=== PATIENT | male | born 1950 | race Caucasian/White ===

== ENCOUNTER 2018-12-13 21:21 | Outpatient (REF) | payer MEDICARE, MEDICAID, SELFPAY ==
[2018-12-13 21:51] LABS: BUN 20 mg/dL (7-18); CREATININE 0.94 mg/dL (0.70-1.30); Calcium 9.4 mg/dL (8.5-10.1); Chloride 103 mmol/L (98-107); Glucose 92 mg/dL (70-100); Sodium 140 mmol/L (136-145)
== END 2018-12-13 21:41 ==
LOC: NCHCN 21:21
PROVIDERS: PCP Internal Medicine; Visit Provider Internal Medicine
DX: I10 Essential (primary) hypertension (principal)
CPT/HCPCS: 80048

== ENCOUNTER 2019-03-06 10:53 | Outpatient (REF) | payer MEDICARE, MEDICAID, SELFPAY ==
[2019-03-06 21:32] LABS: HCT 44.1 % (40.0-50.0); HGB 14.7 g/dL (13.5-17.5); Mean Corp. HGB Concentration 33.3 g/dL (32.0-36.0); Mean Corpuscular Hemoglobin 29.5 pg (27.0-33.0); Mean Corpuscular Volume 88.4 fL (80-95); Mean Platelet Volume 10.4 fL (8.0-11.0); Platelet Count 344 x1000/uL (130-400); RBC 4.99 m/cumm (4.50-6.00); RBC Distribution Width 13.9 % (11.8-14.1)
[2019-03-06 21:36] LABS: Anion Gap 9.1 mmol/L (3-11); BUN 11 mg/dL (7-18); CO2 29.9 mmol/L (21.0-32.0); Calcium 9.6 mg/dL (8.5-10.1); Chloride 103 mmol/L (98-107); Glucose 84 mg/dL (70-100); Potassium 4.2 mmol/L (3.5-5.1); Sodium 142 mmol/L (136-145)
== END 2019-03-06 11:13 ==
LOC: NCHCN 10:53
PROVIDERS: PCP Nurse Practitioner Family; Visit Provider Nurse Practitioner Family
DX: I10 Essential (primary) hypertension (principal); J44.1 Chronic obstructive pulmonary disease with (acute) exacerbation; R61 Generalized hyperhidrosis
CPT/HCPCS: 80048; 85027

== ENCOUNTER 2020-03-26 08:14 | Outpatient (REF) | payer SELFPAY ==
[2020-03-26 22:12] LABS: Anion Gap 6.8 mmol/L (3-11); BUN 10 mg/dL (7-18); CO2 28.2 mmol/L (21.0-32.0); CREATININE 0.86 mg/dL (0.70-1.30); Calcium 9.2 mg/dL (8.5-10.1); Chloride 104 mmol/L (98-107); Glucose 86 mg/dL (74-106); Potassium 4.1 mmol/L (3.5-5.1); Sodium 139 mmol/L (136-145)
== END 2020-03-26 08:34 ==
LOC: NCHCN 08:14
PROVIDERS: PCP Nurse Practitioner Family; Visit Provider Internal Medicine
DX: I10 Essential (primary) hypertension (principal)
CPT/HCPCS: 80048

== ENCOUNTER 2021-06-26 18:38 | Outpatient (REF) | payer OTHER, MEDICAID, SELFPAY ==
[2021-06-26 15:18] LABS: ALT 21 U/L (16-63); AST 20 U/L (15-37); Albumin 4.5 g/dL (3.4-5.0); Alkaline Phosphatase 70 U/L (46-116); Anion Gap 8.9 mmol/L (3-11); BUN 13 mg/dL (7-18); Bilirubin, Total 0.6 mg/dL (0.2-1.0); CO2 26.1 mmol/L (21.0-32.0); CREATININE 0.8 mg/dL (0.70-1.30); Calcium 9.2 mg/dL (8.5-10.1); Calculated LDL 53 mg/dL (<100); Chloride 105 mmol/L (98-107); Cholesterol 138 mg/dL (<200); Glucose 92 mg/dL (74-106); HDL Cholesterol 73 mg/dL (40-60); Potassium 3.5 mmol/L (3.5-5.1); Sodium 140 mmol/L (136-145); Total Protein 7.3 g/dL (6.4-8.2); Triglyceride 60 mg/dL (<150)
== END 2021-06-26 18:39 | disposition home or self-care (01) ==
LOC: NCHCN 18:38
PROVIDERS: PCP Nurse Practitioner Family; Visit Provider Internal Medicine
DX: I10 Essential (primary) hypertension (principal); E78.5 Hyperlipidemia, unspecified; F17.210 Nicotine dependence, cigarettes, uncomplicated
CPT/HCPCS: 80053; 80061

== ENCOUNTER 2021-09-23 13:10 | Outpatient (REF) | payer OTHER, MEDICAID, SELFPAY ==
[2021-09-24 10:43] LABS: HIV-1/2 Ag & Ab Screen Negative (Negative)
[2021-09-24 10:45] LABS: Hepatitis B Surface Ag Negative (Negative)
[2021-09-24 13:15] LABS: HCV RNA Qualitative Undetected (Undetected)
== END 2021-09-23 13:11 | disposition home or self-care (01) ==
LOC: LBN 13:10
PROVIDERS: PCP Nurse Practitioner Family; Visit Provider Internal Medicine Infectious Disease
DX: Z11.4 Encounter for screening for human immunodeficiency virus [HIV]; Z11.59 Encounter for screening for other viral diseases; Z20.828 Contact with and (suspected) exposure to other viral communicable diseases
CPT/HCPCS: 87340; 87389; 87522

== ENCOUNTER 2022-04-19 14:15 | Outpatient (REF) | payer OTHER, MEDICAID, SELFPAY | END 2022-04-19 14:16 | disposition home or self-care (01) | LOC: NCHCN 14:15 | PROVIDERS: PCP Nurse Practitioner Family; Visit Provider Internal Medicine | DX: R30.0 Dysuria (principal) | CPT/HCPCS: 87086 ==

== ENCOUNTER 2023-01-11 11:12 | Outpatient (REF) | payer MEDICARE, MEDICAID, SELFPAY ==
[2023-01-11 15:43] LABS: HCT 44.3 % (40.0-50.0); HGB 14.7 g/dL (13.5-17.5); MCH 28.8 pg (27.0-33.0); MCHC 33.2 % (32.0-36.0); MCV 87 fL (80-95); MPV 10.7 fL (8.0-11.0); Platelet Count 208 10^3/uL (130-400); RDW 14.5 % (11.8-14.1); RDW-SD 46.4 fL; WBC 7.08 10^3/uL (4.4-10.8)
[2023-01-11 16:21] LABS: Anion Gap 6.6 mmol/L (3-11); BUN 11 mg/dL (7-18); CO2 29.4 mmol/L (21.0-32.0); CREATININE 0.9 mg/dL (0.70-1.30); Calcium 9.5 mg/dL (8.5-10.1); Calculated LDL 64 mg/dL (<100); Chloride 105 mmol/L (98-107); Cholesterol 143 mg/dL (<200); Estimated GFR 91.31 (mL/min/1.73m2); Glucose 93 mg/dL (74-106); HDL Cholesterol 71 mg/dL (40-60); Potassium 4.6 mmol/L (3.5-5.1); Sodium 141 mmol/L (136-145); Triglyceride 41 mg/dL (<150)
== END 2023-01-11 11:13 | disposition home or self-care (01) ==
LOC: NCHCN 11:12
PROVIDERS: PCP Nurse Practitioner Family; Visit Provider Internal Medicine
DX: I10 Essential (primary) hypertension (principal); E78.5 Hyperlipidemia, unspecified; I25.10 Atherosclerotic heart disease of native coronary artery without angina pectoris
CPT/HCPCS: 80048; 80061; 85027

== ENCOUNTER 2024-11-23 13:28 | Outpatient (REF) | payer MEDICARE, MEDICAID, SELFPAY ==
[2024-11-23 15:42] LABS: Anion Gap 6.4 mmol/L (3-11); BUN 14 mg/dL (7-18); CO2 34.6 mmol/L (21.0-32.0); Calcium 9.8 mg/dL (8.5-10.1); Chloride 99 mmol/L (98-107); Estimated GFR 97.29 (mL/min/1.73m2); Glucose 86 mg/dL (74-106); Magnesium 1.9 mg/dL (1.8-2.4); Potassium 3.7 mmol/L (3.5-5.1); Sodium 140 mmol/L (136-145)
== END 2024-11-23 13:29 | disposition home or self-care (01) ==
LOC: NCHCN 13:28
PROVIDERS: PCP Nurse Practitioner Family; Visit Provider Internal Medicine
DX: R25.2 Cramp and spasm (principal); Z95.2 Presence of prosthetic heart valve
CPT/HCPCS: 80048; 83735